=== PATIENT | male | born 1995 | race Caucasian/White ===

== ENCOUNTER 2016-11-13 16:02 | Emergency (ER) | payer OTHER ==
--- NOTE | 2016-11-13 16:40 | ER Document Report ---
ED Extremity Problem, Lower - General Chief Complaint: Knee Pain Stated Complaint: RIGHT KNEE PAIN Time Seen by Provider: 11/13/16 16:14 Notes: Patient is a 21-year-old male presents emergency department complaining of right knee pain. Patient states that he is jumping up and down and dribbling when he felt his right knee give out. Patient admits to immediate pain and swelling. Patient states that he has difficulty bearing weight on this knee. Denies any numbness or tingling in his lower extremity. Patient states that he is able to bend and straighten his knee on its own. Has normal sensation and motor function of lower extremity past injury. Denies any previous injury or surgery to this knee. Otherwise healthy male. 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 TRAVEL OUTSIDE OF THE [place] IN LAST 30 DAYS: No - Related Data Allergies/Adverse Reactions: No Known Allergies Allergy (Unverified 11/13/16 16:06) Past Medical History - Social History Smoking Status: Never Smoker Family History: Reviewed & Not Pertinent Renal/ Medical History: Denies: Hx Peritoneal Dialysis Review of Systems - Review of Systems Constitutional: No symptoms reported Musculoskeletal: See HPI -: Yes All other systems reviewed and negative Physical Exam - Vital signs Vitals: Temp Pulse Resp BP Pulse Ox 99.1 F 65 14 152/75 H 100 11/13/16 16:07 11/13/16 16:07 11/13/16 16:07 11/13/16 16:07 11/13/16 16:07 - General General appearance: Appears well, Alert In distress: None - Cardiovascular Pulses: Normal: Femoral, Popliteal, Posterior tibial, Dorsalis pedis Normal capillary refill: Yes - Extremities Hip: Normal, Nontender Thigh: Normal, Nontender Knee: Tender - lateral joint line, Joint effusion, Pain with ROM, Patellar tendon intact, Unable to bear weight. No: Abrasion, Deformity, Dislocation, Drawer's test instability, Ecchymosis, Instability, Laceration, Laxity with valgus stress, Laxity with varus stress, Popliteal fossa tender Calf: Normal, Nontender Ankle: Normal, Nontender Foot: Normal, Nontender - Neurological Neuro grossly intact: Yes Cognition: Normal Orientation: AAOx4 [place] Coma Scale Eye Opening: Spontaneous [place] Coma Scale Verbal: Oriented [place] Coma Scale Motor: Obeys Commands [place] Coma Scale Total: 15 Motor strength normal: LLE, RLE Additional motor exam normals: No: Weakness Sensory: Normal Course - Re-evaluation Re-evalutation: 11/13/16 17:33 No evidence of a septic joint, gout flare, dislocation, or fracture on exam and imaging. Vitals wnl. At this time, I do not see an indication for labs or further imaging. Patient placed in a knee immobilizer and given crutches. Will discharge with conservative measures, return precautions, and follow-up recommendations. - Vital Signs Vital signs: Temp Pulse Resp BP Pulse Ox 98.9 F 66 16 136/66 H 100 11/13/16 17:28 11/13/16 17:28 11/13/16 17:28 11/13/16 17:28 11/13/16 17:28 - Diagnostic Test Radiology reviewed: Image reviewed, Reports reviewed Discharge - Discharge Clinical Impression: Knee pain Qualifiers: Chronicity: acute Laterality: right Qualified Code(s): M25.561 - Pain in right knee Condition: Good Disposition: HOME, SELF-CARE Instructions: Use of Crutches ([facility]), Use of [id number] Ibuprofen ([facility]), Ice & Elevation ([facility]), Suspected Internal Knee Injury ([facility]), Knee Immobilizing Splint ([facility]) Additional Instructions: [place] additional imaging and evaluation by an orthopedist. Forms: Special Work Note, Return to Work Referrals: CRISTIAN TILLEY MD [ACTIVE STAFF] - Follow up as needed (Ortho)
[2016-11-13] MEDS ORDERED: IBUPROFEN 800 MG TABLET PO ONE (16:53)
--- NOTE | 2016-11-13 16:57 | RADIOLOGY REPORT (SQ) ---
EXAM DESCRIPTION: KNEE RIGHT 4 VIEWS COMPLETED DATE/TIME: 11/13/2016 4:47 pm REASON FOR STUDY: pain COMPARISON: None. NUMBER OF VIEWS: Four views right knee. LIMITATIONS: None. FINDINGS: Normal bone density. There may be some lateral compartment joint space narrowing (some of this may be projectional, artifact). No fracture or bone lesion. Moderate joint effusion. OTHER: No other significant finding. IMPRESSION: Joint effusion. TECHNICAL DOCUMENTATION: JOB ID: [id number]
[2016-11-13 17:31] VITALS: BP 136/66
== END 2016-11-13 17:28 | disposition home or self-care (01) ==
LOC: ER 16:02
DX: M25.561 Pain in right knee (principal); M25.461 Effusion, right knee
CPT/HCPCS: 99283; 73564; L1830